=== PATIENT | male | born 1945 ===

== ENCOUNTER 2022-01-07 15:53 | Outpatient (CLI) | payer OTHER | END 2022-01-07 16:05 | disposition home or self-care (01) | LOC: LAB 15:53 | PROVIDERS: ATTEND Urology | DX: R97.20 Elevated prostate specific antigen [PSA] (principal) ==

== ENCOUNTER → 2024-07-04 | Outpatient (CLI) | payer OTHER | END | disposition home or self-care (01) | LOC: LAB 09:41 | PROVIDERS: ATTEND Urology | DX: N39.0 Urinary tract infection, site not specified (principal) ==